=== PATIENT | female | born 1995 | race Caucasian/White ===

== ENCOUNTER → 2017-02-14 | Outpatient (CLI) | payer MEDICAID ==
[~2017-02-14] MED LIST: LANSINOH7 GM TOP; MAPAP16 MG/0.5 PO; MOTRIN800 MG PO; PRENATAL 1+1)(P1 TAB PO; SURFAK240 MG PO
[2017-02-14 20:03] LABS: BASOPHIL % 0.2 %; EOSINOPHIL # 0.2 K/uL (0.0-0.5); EOSINOPHIL % 1.4 %; HEMATOCRIT 37.7 % (33.0-46.0); HEMOGLOBIN 12.4 g/dL (11.0-15.0); IMMATURE GRANULOCYTE % 0.3 %; LYMPHOCYTE # 3.1 K/uL (0.8-4.0); LYMPHOCYTE % 28.6 %; MCH 29.6 pg (27.0-34.0); MCHC 32.9 gm/dL (32.0-36.5); MONOCYTE # 0.8 K/uL (0.0-1.0); MONOCYTE % 6.9 %; MPV 10.9 fl (9.4-12.4); NEUTROPHIL # (ANC) 6.8 K/uL (1.8-7.8); NEUTROPHIL % 62.6 %; NRBC % 0 /100WBC (0-0.00); PLATELET COUNT 261 K/uL (150-450); RBC 4.19 M/uL (3.50-5.00); RDW-CV 13.7 % (11.9-14.6); WBC 10.8 K/uL (4.0-11.0)
[2017-02-14 20:20] LABS: AMPHETAMINE NEGATIVE (NEGATIVE); BARBITURATE NEGATIVE (NEGATIVE); COCAINE NEGATIVE (NEGATIVE); OPIATES NEGATIVE (NEGATIVE)
== END | disposition disaster alternative care site (69) ==
LOC: LKCL 12:38
PROVIDERS: Family Medicine
DX: Z34.81 Encounter for supervision of other normal pregnancy, first trimester (principal)
CPT/HCPCS: G0145

== ENCOUNTER 2017-03-17 10:21 | Emergency (ER) | payer MEDICAID ==
--- NOTE | ~2017-03-17 | ER ---
PATIENT'S NAME: AMINTA PAZ [facility] AGE: 21 Y [address] ROOM: [place] [address] LOCATION: [facility] ADMIT DATE: 03/17/2017 ER/Outpatient Report DISCHARGE DATE: 03/17/2017 FAMILY PHYSICIAN: Sergei Hickman MD ATTENDING PHYSICIAN: Agustin Fox CHIEF COMPLAINT: Headache. HISTORY OF PRESENT ILLNESS: The patient states she has had migraine for seven days. It is in the back of her head. It is pressure-like. She has no sensory deficits. She does not like the bright lights. She has had no fevers or true meningismus with this. It does radiate up to her forehead. Nlln-cho-wzfscvl Benadryl and other remedies including caffeine and sleep did not help. She is about 18 weeks' . She has had some vomiting, but she has also been struggling with that, was secondary to her , otherwise. She denies any vision changes or other neurological symptoms. PAST MEDICAL HISTORY: Documented in the record and reviewed by me. SOCIAL HISTORY: Documented in the record and reviewed by me. MEDICATIONS: Documented in the record and reviewed by me. ALLERGIES: DOCUMENTED IN THE RECORD AND REVIEWED BY ME. REVIEW OF SYSTEMS: All systems are reviewed and negative except as noted in the HPI. PHYSICAL EXAMINATION: VITAL SIGNS: Blood pressure 116/62, pulse is 69, respiratory rate is 16, temperature 97.9, and SpO2 is 97% on room air. Pain is about a 7-1/2 out of 10. GENERAL: Age-appropriate female in no obvious pain or distress. Clearly miserable sitting on the table with stocky hat and glasses on. NEUROLOGIC: The patient is awake and alert. GCS is 15. No focal deficits. No asymmetry. Moves all extremities appropriately. Strength is normal. No gait abnormalities. HEENT: Normocephalic and atraumatic. Eyes are PERRL. Slightly sensitive to light. Noninjected. PATIENT'S NAME: AMINTA PAZ [facility] AGE: 21 Y [address] ROOM: [place], [place] [address] LOCATION: [facility] ADMIT DATE: 03/17/2017 ER/Outpatient Report DISCHARGE DATE: 03/17/2017 FAMILY PHYSICIAN: Sergei Hickman MD ATTENDING PHYSICIAN: Agustin Fox NECK: Supple. Trachea is midline. Oropharynx is clear. Moist and pink. No cervical adenopathy. CHEST: Heart is regular rate and rhythm with no murmurs. LUNGS: Clear to auscultation bilaterally with no rhonchi, wheezes, or rales. ABDOMEN: Soft, nontender, and nondistended. No rebound or guarding. BACK: Nontender to palpation throughout. No CVA tenderness. EXTREMITIES: Warm and well perfused. SKIN: Warm, dry, and intact. LABORATORY DATA AND IMAGING STUDIES: Labs and X-rays: None. IMPRESSION: Migraine. EMERGENCY DEPARTMENT COURSE: The patient was seen and evaluated as above. Her presentation is not consistent with dural venous sinus thrombosis or was it meningitic by presentation based on symptoms and duration. She does not appear to be ill. She is clearly just miserable. She was given two doses of Reglan, Benadryl, fluids, and a dose of Decadron with marked improvement in her symptoms. She states her headache was basically gone, but she is still a little bit tired. Hopefully, the Decadron will help her feel quite a bit better over the course of the next few days. I encouraged her to return if needed as worse. Presentation not consistent with preeclampsia. MD BRENDA ANDERSON/salvadorl /[id number] d: 03/18/17 1453 t: 04/04/17 0901, OUTPATIENT REPORT
== END 2017-03-17 13:19 | disposition disaster alternative care site (69) ==
LOC: GMED 10:21
DX: O99.352 Diseases of the nervous system complicating pregnancy, second trimester (principal); G43.909 Migraine, unspecified, not intractable, without status migrainosus; Z3A.18 18 weeks gestation of pregnancy
CPT/HCPCS: J1100; J1200; J2765; J7030

== ENCOUNTER 2017-03-24 22:25 | Emergency (ER) | payer MEDICAID ==
--- NOTE | ~2017-03-24 | ER ---
PATIENT'S NAME: AMINTA PAZ [facility] AGE: 22 Y [address] ROOM: [place], [place] [address] LOCATION: [facility] ADMIT DATE: 03/24/2017 ER/Outpatient Report DISCHARGE DATE: 03/25/2017 FAMILY PHYSICIAN: Sergei Hickman MD ATTENDING PHYSICIAN: Christina Go HISTORY OF PRESENT ILLNESS: A 22-year-old female who is currently 18 weeks' , presents today with chief complaint of headache. She says it is occipital and it spreads around to her frontal area behind her eyes. She rates it 7.5/10. She reports some nausea and photophobia. Denies any neck pain though. Denies any vision changes. Denies any neuro symptoms. Says that she has been trying Tylenol and such at home, but it is not really helping. She was in here recently for the similar complaints; was treated as a migraine for which she got Reglan, Benadryl, and Decadron with reported improvement according to the note when she was seen, although the patient says she thinks they just made her sleepy, but it is still there. Denies any new neuro symptoms or any other complaints at this time. PAST MEDICAL HISTORY: Includes some mild headaches, but never anything like this. She says she does not have a history of migraines. She is currently 4-1/2 months' . SOCIAL HISTORY: She smokes 4 to 5 cigarettes per day and has done so for about 7 years. PAST SURGICAL HISTORY: None. MEDICATIONS: Please see med list. ALLERGIES: NONE. REVIEW OF SYSTEMS: Reviewed by me and negative with the exception of those discussed in the HPI. PHYSICAL EXAMINATION: VITAL SIGNS: She is 5 feet 7 inches. She weighs 87.3 kilos. Blood pressure is 136/67, heart rate 85, respiratory rate 18, temperature 96, and saturations are 98% on room air. GCS is 15. HEENT: The patient has no signs of head trauma. She has no tenderness at the back of her head. She is A and O x4. Pupils are equal and reactive to light, although she does have photophobia. She moves all extremities. She has no PATIENT'S NAME: AMINTA PAZ [facility] AGE: 22 Y [address] ROOM: [place], [place] [address] LOCATION: ED ADMIT DATE: 03/24/2017 ER/Outpatient Report DISCHARGE DATE: 03/25/2017 FAMILY PHYSICIAN: Sergei Hickman MD ATTENDING PHYSICIAN: Christina Go facial droop at all and is speaking to me appropriately. She is not disoriented. PSYCH: She is cooperative with normal speech, responds appropriately. HEART: Regular rate and rhythm. LUNGS: Her lung sounds are clear. ABDOMEN: Soft, nontender, nondistended. MORE DETAILED NEURO EXAM: She has no pronator drift. Strength, bilateral upper extremities, is 5/5, lower extremities 5/5. Intact sensation in bilateral upper and lower extremities to blunt and fine point testing. Gait is within normal limits. She is able to do [id number]-idpm-[id number] testing as well. EMERGENCY ROOM COURSE: We put an IV, and I gave the patient Reglan. My concern for her was that this is not really presenting like cavernous sinus thrombosis or preeclampsia, but would be worried in someone that clearly looks uncomfortable without a history of really migraines or headaches. To rule out cavernous sinus thrombosis as I think she does look very uncomfortable, although she has no neuro symptoms, I did order MRI and MRA of the brain with IV contrast. 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 She signed AMA form, and she says she understands the risks of stroke, bleeding, , etc., so she left without knowing the results. I did get the results later and the patient has a normal MRI. There is no dural sinus thrombosis and otherwise completely normal brain MRI. IMPRESSION: Headache. MD OSIRIS COREY/greg /[id number] d: 03/25/17 0500 t: 03/25/17 1822, OUTPATIENT REPORT
== END 2017-03-25 00:09 | disposition left against medical advice (07) ==
LOC: GMED 22:25
DX: O99.89 Other specified diseases and conditions complicating pregnancy, childbirth and the puerperium (principal); R51 Headache; O99.332 Smoking (tobacco) complicating pregnancy, second trimester; F17.210 Nicotine dependence, cigarettes, uncomplicated; Z3A.18 18 weeks gestation of pregnancy; Z79.899 Other long term (current) drug therapy
CPT/HCPCS: A9577; J2765